=== PATIENT | male | born 1955 | race Caucasian/White ===

== ENCOUNTER 2024-07-29 05:52 | Day surgery (SDC) | payer OTHER, MEDICARE, BC ==
[2024-07-29] MEDS ORDERED: Lactated Ringers 1,000 ML IV ONE (06:13)
[2024-07-29 06:16] VITALS: RESP 18
[2024-07-29] MEDS: Lactated Ringers 1,000 ML IV SCH (06:20)
[2024-07-29] MEDS ORDERED: DIPRIVAN 200 MG/20 ML IV ONE ×2 (07:19→08:17)
[2024-07-29] MEDS ORDERED: Xylocaine-Mpf 2% 5 Ml Vial ONE (07:19)
[2024-07-29] MEDS ORDERED: Lactated Ringers 0 ML IV ONE (07:39)
[2024-07-29 08:59] VITALS: BP 98/60; PULSE 75; TEMP 97.6; O2SAT 96
--- NOTE | 2024-07-31 21:31 | OP ---
SURGERY DATE/TIME: 07/29/2024 7506 - [id number] PREOPERATIVE DIAGNOSIS: Screening exam with a previous history of colon polyps. POSTOPERATIVE DIAGNOSIS: Moderate to severe sigmoid diverticulosis. Otherwise, normal colon. PROCEDURE: Colonoscopy. SURGEON: Galen Green MD ANESTHESIA: Medication given by the Anesthesia department. HISTORY: The patient is a 68-year-old white male patient presenting now for screening colonoscopy. He reports it has been approximately 6 years since his previous evaluation where 3 polyps were removed. The pathology report is unknown at this time. The patient is felt to need endoscopic evaluation. He was appraised of the risks of the procedure and the risk of perforation, phlebitis, untoward reaction to medication, bleeding and missed lesions. The patient verbalized his understanding and desired to have the procedure performed. DESCRIPTION OF PROCEDURE AND FINDINGS: Patient was given medication by the Anesthesia department. He had continuous pulse oximetry, ECG monitoring, and intermittent blood pressure monitoring during the examination. He was placed in the left lateral decubitus position. Digital rectal examination was performed and revealed normal anal sphincter tone, no masses, and a normal prostate. The flexible Olympus colonoscope was used to intubate the rectum. A view of the colon was developed sequentially to the cecum. Upon insertion and withdrawal, including retroflexion in the rectum, it was noted moderate to severe sigmoid diverticulosis. No mucosal lesions were encountered. The scope was removed. The patient tolerated the procedure well and was sent back to outpatient recovery in good condition. The prep was noted to be fair to poor with approximately 400 mL of liquid stool removed from the colon and there was also areas where there was still some solid stool present.
== END 2024-07-29 09:11 | disposition home or self-care (01) ==
LOC: SDC 05:52
PROVIDERS: ATTEND Family Medicine
DX: Z12.11 Encounter for screening for malignant neoplasm of colon (principal); Z09 Encounter for follow-up examination after completed treatment for conditions other than malignant neoplasm; Z86.0100 Personal history of colon polyps, unspecified; E11.9 Type 2 diabetes mellitus without complications; K57.30 Diverticulosis of large intestine without perforation or abscess without bleeding
CPT/HCPCS: 82947; G0121; J2704